=== PATIENT | male | born 1955 | race Caucasian/White ===

== ENCOUNTER 2022-07-19 14:15 | Emergency (ER) | payer OTHER ==
[~2022-07-19] VITALS: Ht 177.8 cm; Wt 90.7 kg
[2022-07-19 14:22] VITALS: BP_SYST 134
[2022-07-19] MEDS ORDERED: AUG875 PO (17:42)
[2022-07-19] MEDS ORDERED: BENZ100C92 PO (17:42)
[2022-07-19 17:45] VITALS: BP_SYST 134
== END 2022-07-19 17:45 | disposition home or self-care (01) ==
LOC: SED 14:15
DX: J01.90 Acute sinusitis, unspecified (principal); R51.9 Headache, unspecified; R05.9 Cough, unspecified; H92.03 Otalgia, bilateral; Z79.899 Other long term (current) drug therapy
CPT/HCPCS: 99283